=== PATIENT | male | born 1950 | race Caucasian/White ===

== ENCOUNTER → 2021-11-17 08:08 | Outpatient (BNVA) | payer MEDICARE, SELFPAY | PROVIDERS: PCP Clinical Nurse Specialist Adult Health; Visit Provider Clinical Nurse Specialist Adult Health | DX: L03.90 Cellulitis, unspecified; R21 Rash and other nonspecific skin eruption; F17.200 Nicotine dependence, unspecified, uncomplicated; E78.5 Hyperlipidemia, unspecified | CPT/HCPCS: 80053; 80061; 85025 ==

== ENCOUNTER → 2021-11-29 08:14 | Outpatient (BNVA) | payer MEDICARE, SELFPAY | PROVIDERS: PCP Clinical Nurse Specialist Adult Health; Visit Provider Clinical Nurse Specialist Adult Health | DX: R17 Unspecified jaundice (principal) | CPT/HCPCS: 80074; 80076 ==

== ENCOUNTER 2022-12-15 13:08 | Emergency (ER) | payer MEDICARE, SELFPAY ==
[2022-12-15 13:14] VITALS: BP 170/69; PULSE 61; RESP 16; TEMP 36.7; O2SAT 96; BMI 21.7
--- NOTE | 2022-12-15 15:37 | ED_ITS ---
HPI - Skin/Abscess/Foreign Bdy General: Chief complaint: Skin/Abscess/Foreign Body Stated complaint: right leg issues Time Seen by Provider: 12/15/22 15:04 Source: patient and family Mode of arrival: ambulatory Limitations: no limitations History of Present Illness: 72yo male Presents with significant other for rash to the right lower leg. They report his symptoms originally started on 12/03. States that at that time he had chills, was sleeping more than usual, and generally did not feel good. He states they went to the urgent care on 12/05 with a rash to the right lower leg and was diagnosed with cellulitis. Reports they are on their last day of Bactrim, but have noticed that the swelling and rash have started to worsen after initial improvement. Significant other reports that it has been worsening over the past 3 days. States that it is now to the right upper leg and there is swelling to the ankle again. Patient denies fever, chills, body aches, any other concern at this time. Associated symptoms: Deny chills, fever(s) or vomiting Review of Systems General: Reports: 10 or more systems reviewed and unremarkable except in HPI and below Const: Denies: fever(s) or chills Card: Denies: chest pain Resp: Denies: dyspnea GI: Denies: abdominal pain or vomiting Musc: Denies: neck pain or back pain Skin/Breast: Reports: rash (right leg) and skin tenderness (right lower leg) Neuro: Denies: headache(s) PFS ED PFSH: Medical History History of head injury Tobacco dependence Surgical History History of detached retina repair History of hand surgery History of inguinal hernia repair Social History Smoking and tobacco status: current every day smoker cigarettes Packs smoked per day: 1 Years cigarettes smoked: 50 Alcohol intake: current Substance/Drug Use: never Physical Exam Const: COMMON NORMALS: no acute distress and alert GENERAL APPEARANCE: cooperative ORIENTATION/CONSCIOUSNESS: Yes awake OTHER: Patient is sitting upright on the stretcher in no acute distress. He is able to make position changes unassisted. Significant other is at bedside HENMT: COMMON NORMALS: normocephalic, atraumatic and Normal external nose present HEAD & SCALP: normocephalic and atraumatic NOSE: Normal external nose present MOUTH: lip normal Eye: GENERAL EYE: appearance normal, both eyes and all related structures Chest: CHEST: Yes Symmetrical chest wall rise Resp: COMMON NORMALS: normal respiratory effort EFFORT & INSPECTION: Yes able to speak in complete sentences Cardio: COMMON NORMALS: regular rate RATE: regular rate Back/Pelvis: COMMON NORMALS: thoraco-lumbar ROM normal Extremity: COMMON NORMALS: capillary refill normal Neuro: SENSORIUM/ORIENTATION: Yes alert Skin: GENERAL SKIN EXAM: erythema (top of right foot) and no fluctuance RASHES: rashes noted (erythematous papules travelling up medial aspect of the upper leg) scattered erythmatous papules to lower leg Course Vital Signs: Vital signs: Vital Signs Temperature 98.0 F 12/15/22 13:14 Pulse Rate 61 12/15/22 13:14 Respiratory Rate 16 12/15/22 13:14 Blood Pressure 170/69 12/15/22 13:14 Pulse Oximetry 96 12/15/22 13:14 Oxygen Delivery Me thod Room Air 12/15/22 13:14 MDM - Skin/Abscess/Foreign Bdy Medicial Decision Making 72yo male here with SO for Concern of worsening cellulitis. Patient's symptoms originally started on 12/03/2022 and worsened so they went to the urgent care on 12/05 and started Bactrim for cellulitis. They state it initially improved some, but have noticed over the past couple of days that it is started worsening again and are on their last day of antibiotic. They deny any fever, chills, body ache s, any other concern at this time. They do report that he had cellulitis in the left leg a little over a year ago and the Bactrim worked for it at that time. Patient is nontoxic in appearance. Vital signs are stable. CBC with thrombocytopenia, stable from previous. CMP unremarkable. ESR and CRP unremarkable. Discussed findings with patient and SO. Advised this may be bacteria, but labs are not supporting it. Discussed that the rash may be viral as well. Ceftriaxone and prednisone provided in the emergency department. Cephalexin and medrol dose pack prescribed. Advised to follow up with primary care next week. Recommend returning to the emergency department if rapid worsening and as needed. Differential Diagnosis Likely viral exanthem and cellulitis Medical Records I reviewed the patient's medical records. Lab Data I reviewed the patient's lab results. 12/15/22 15:43 12/15/22 15:43 Laboratory Results WBC 6.78 10^3/uL (3.29-11.43) 12/15/22 15:43 RBC 5.05 10^6/uL (3.85-5.65) 12/15/22 15:43 Hgb 15.40 g/dL (11.27-16.99) 12/15/22 15:43 Hct 47.9 % (37-53) 12/15/22 15:43 MCV 94.9 fl (82-101) 12/15/22 15:43 MCH 30.5 pg (27-33) 12/15/22 15:43 MCHC 32.2 g/dL (30-55) 12/15/22 15:43 RDW 14.4 % (12.1-15.1) 12/15/22 15:43 Plt Count 130 10^3/cmm (157-399) L 12/15/22 15:43 MPV 12.5 fL (7.4-10.4) H 12/15/22 15:43 Neut % (Auto) 71.6 % 12/15/22 15:43 Lymph % (Auto) 17.1 % 12/15/22 15:43 Weber % (Auto) 7.8 % 12/15/22 15:43 Eos % (Auto) 1.9 % 12/15/22 15:43 Baso % (Auto) 0.7 % 12/15/22 15:43 Neut # (Auto) 4.85 10^3/uL (1.8-7.7) 12/15/22 15:43 Lymph # (Auto) 1.2 10^3/uL (0.8-4.8) 12/15/22 15:43 Weber # (Auto) 0.5 10^3/uL (0.2-0.9) 12/15/22 15:43 Eos # (Auto) 0.1 10^3/uL (0.0-0.8) 12/15/22 15:43 Baso # (Auto) 0.1 10^3/uL (0.0-0.1) 12/15/22 15:43 Nucleated RBC % (auto) 0 % 12/15/22 15:43 Nucleated RBCs # 0.0 /100WBC 12/15/22 15:43 ESR 4 mm/hr (0-10) 12/15/22 15:43 Sodium 141 mmol/L (136-145) 12/15/22 15:43 Potassium 3.8 mmol/L (3.5-5.1) 12/15/22 15:43 Chloride 105 mmol/L (98-107) 12/15/22 15:43 Carbon Dioxide 27 mmol/L (22-29) 12/15/22 15:43 Anion Gap 12.8 (5-19) 12/15/22 15:43 BUN 15 mg/dL (8-23) 12/15/22 15:43 Creatinine 0.8 mg/dL (0.7-1.2) 12/15/22 15:43 GFR Calculation 95.6 mL/min (90-130) 12/15/22 15:43 Glucose 70 mg/dL (65-115) 12/15/22 15:43 Calculated Osmolality 291 mOsm/kg (285-295) 12/15/22 15:43 Calcium 9.1 mg/dL (8.5-10.5) 12/15/22 15:43 Total Bilirubin 0.7 mg/dL (0.15-1.2) 12/15/22 15:43 AST 20 U/L (0-40) 12/15/22 15:43 ALT 23 U/L (0-41) 12/15/22 15:43 Alkaline Phosphatase 114 U/L (40-130) 12/15/22 15:43 C-Reactive Protein 6.1 mg/L (0.0-4.9) H 12/15/22 15:43 Total Protein 8.1 g/dL (6.6-8.7) 12/15/22 15:43 Albumin 4.2 g/dL (3.5-5.2) 12/15/22 15:43 Globulin 3.9 g/dL (1.3-4.6) 12/15/22 15:43 Discharge Plan Discharge Patient Disposition: Home Clinical Impression: Skin rash, Cellulitis Condition: Stable Prescriptions: New Medrol (Raymond) 4 mg tablets,dose pack See Rx Instructions .ROUTE .COMPLEX Qty: 21 0RF Rx Instructions: orally per package directions cephalexin 500 mg capsule 500 mg PO Q6H 7 Days Qty: 28 0RF No Action sulfamethoxazole-trimethoprim [Bactrim DS] 800-160 mg tablet 1 tab PO BID 10 Days Qty: 20 0RF Discharge Orders: Discharge ED (Routine); Ordered 12/15/22 Ordered By: Isaac Vance Referrals: Arnol Stewart NP [Primary Care Provider] - Jesse Christina MD [Family Provider] - Discharge Diet: Usual diet Discharge Activity: Increase activity as tolerated Patient Instructions: Cellulitis (ED), Acute Rash (ED) Activity Restrictions/Additional Instructions: Continue to monitor Follow up with primary care, call Saturday with an update of symptoms and for a recheck Return to the emergency department if rapid worsening and as needed Coding Level of Care Code ED Firmware Developer for Jennifer Whitman
[2022-12-15 15:54] LABS: Basophils # 0.1 10^3/uL (0.0-0.1); Basophils % 0.7 %; Eosinophils # 0.1 10^3/uL (0.0-0.8); Eosinophils % 1.9 %; Hematocrit 47.9 % (37-53); Lymphocytes # 1.2 10^3/uL (0.8-4.8); Lymphocytes % 17.1 %; Mean Corpuscular HGB Conc 32.2 g/dL (30-55); Mean Corpuscular Hemoglobin 30.5 pg (27-33); Mean Corpuscular Volume 94.9 fl (82-101); Mean Platelet Volume 12.5 fL (7.4-10.4); Monocytes # 0.5 10^3/uL (0.2-0.9); Monocytes % 7.8 %; Neutrophils # 4.85 10^3/uL (1.8-7.7); Neutrophils % 71.6 %; Nucleated Red Blood Cells % 0 %; Platelet Count 130 10^3/cmm (157-399); Red Blood Count 5.05 10^6/uL (3.85-5.65); Red Cell Distribution Width 14.4 % (12.1-15.1); White Blood Count 6.78 10^3/uL (3.29-11.43)
[2022-12-15 16:21] LABS: Alanine Aminotransferase 23 U/L (0-41); Albumin Level 4.2 g/dL (3.5-5.2); Alkaline Phosphatase 114 U/L (40-130); Anion Gap 12.8 (5-19); Aspartate Amino Transferase 20 U/L (0-40); Blood Urea Nitrogen 15 mg/dL (8-23); C Reactive Protein 6.1 mg/L (0.0-4.9); Calcium 9.1 mg/dL (8.5-10.5); Carbon Dioxide 27 mmol/L (22-29); Chloride 105 mmol/L (98-107); Globulin 3.9 g/dL (1.3-4.6); Glomerular Filtration Rate 95.6 mL/min (90-130); Glucose 70 mg/dL (65-115); Osmolality Calculated 291 mOsm/kg (285-295); Potassium 3.8 mmol/L (3.5-5.1); Sodium 141 mmol/L (136-145); Total Bilirubin 0.7 mg/dL (0.15-1.2); Total Protein 8.1 g/dL (6.6-8.7)
[2022-12-15 16:26] LABS: Erythrocyte Sedimentation Rate 4 mm/hr (0-10)
[2022-12-15] MEDS: cefTRIAXone 1,000 MG in water for injection-sterile 2.1 ML 1 MG IM (16:59)
[2022-12-15] MEDS: predniSONE 20 mg Tablet PO (16:59)
[2022-12-15 17:09] VITALS: RESP 18
== END 2022-12-15 17:10 | disposition home or self-care (01) ==
PROVIDERS: Emergency Provider Nurse Practitioner; PCP Clinical Nurse Specialist Adult Health
DX: L03.115 Cellulitis of right lower limb (principal); F17.210 Nicotine dependence, cigarettes, uncomplicated
CPT/HCPCS: 36415; 80053; 85025; 85651; 86140; 96372; 99284; J0696; J7512

== ENCOUNTER → 2023-06-13 08:46 | Outpatient (BNVA) | payer MEDICARE, SELFPAY | PROVIDERS: PCP Clinical Nurse Specialist Adult Health; Visit Provider Clinical Nurse Specialist Adult Health | DX: I10 Essential (primary) hypertension (principal) | CPT/HCPCS: 80053 ==